=== PATIENT | female | born 1985 | race Caucasian/White ===

== ENCOUNTER → 2020-10-02 | Outpatient (REF) | payer MEDICARE | LOC: M LAB REF 19:14 | PROVIDERS: ATTEND Physician Assistant | DX: D22.5 Melanocytic nevi of trunk (principal) | CPT/HCPCS: 11102; 88305; G0463 ==

== ENCOUNTER 2023-06-13 13:52 | Observation (INO) | payer MEDICARE ==
[~2023-06-13] VITALS: Ht 167.6 cm; Wt 93.6 kg
[2023-06-13 15:30] VITALS: BP 128/91; TEMP 97.9; O2SAT 99
[2023-06-13] MEDS ORDERED: ONDANSETRON 4MG 2ML VIAL IV PRN (17:00)
[2023-06-13] MEDS ORDERED: LISI10TA22 PO (17:12)
[2023-06-13] MEDS ORDERED: PANT20TA51 PO (17:12)
[2023-06-13] MEDS ORDERED: ATOR1TAB21 PO (17:12)
[2023-06-13] MEDS ORDERED: QUET100T2 PO (17:12)
[2023-06-13] MEDS ORDERED: LEVO100T5 PO (17:12)
[2023-06-13] MEDS ORDERED: MULTTAB86 PO (17:12)
[2023-06-13] MEDS ORDERED: LAMI1TAB7 PO (17:12)
[2023-06-13] MEDS ORDERED: [UNRECOGNIZED DRUG - CODE] PO (17:12)
[2023-06-13] MEDS ORDERED: HOME MED LIST COMPLETE! XX SCH (17:15)
[2023-06-13] MEDS: LR 1,000 ML IV SCH (17:41)
[2023-06-13] MEDS: PANTOPRAZOLE 40MG VIAL IV SCH (17:41)
[2023-06-13] MEDS: PERCOCET 5MG/325MG TAB PO PRN (17:42)
[2023-06-13] MEDS: DOCUSATE SODIUM 100MG CAPSULE PO SCH (19:44)
[2023-06-13 21:00] VITALS: BP 122/63
[2023-06-13] MEDS: lamoTRIgine 100MG TAB PO SCH (21:00)
[2023-06-13] MEDS: QUEtiapine FUMARATE 100 MG TAB PO SCH (21:00)
[2023-06-13] MEDS: ATORVASTATIN 20 MG TAB PO SCH (21:00)
[2023-06-13 22:00] VITALS: BP 122/63; TEMP 97.6; O2SAT 98
[2023-06-14] VITALS (9 sets, daily range): BP systolic 122–143; BP diastolic 64–86; TEMP 97.7–98.5; O2SAT 96–98
[2023-06-14] MEDS: LEVOTHYROXINE 100MCG TABLET (0.1MG) PO SCH (05:17)
[2023-06-14] MEDS ORDERED: fentaNYL 100 MCG/2 ML INJECTION As Ordered ONE (07:55)
[2023-06-14] MEDS ORDERED: MIDAZOLAM INJ 2MG/2ML VIAL As Ordered ONE (07:55)
[2023-06-14] MEDS ORDERED: ROCURONIUM BROMIDE 50MG/5ML VIAL As Ordered ONE (07:56)
[2023-06-14] MEDS ORDERED: GLYCOPYRROLATE INJ 0.2 MG/ML 2 ML VIAL As Ordered ONE (07:56)
[2023-06-14] MEDS ORDERED: propofoL 200 MG/20 ML VIAL As Ordered ONE (07:56)
[2023-06-14] MEDS ORDERED: LIDOCAINE 2% 100MG/5ML SDV (FOR ANES.) As Ordered ONE (07:56)
[2023-06-14] MEDS ORDERED: KETOROLAC 60MG 2ML VIAL As Ordered ONE (07:57)
[2023-06-14] MEDS ORDERED: ONDANSETRON 4MG 2ML VIAL As Ordered ONE (07:57)
[2023-06-14] MEDS ORDERED: ONDANSETRON 4MG 2ML VIAL IV PRN (09:00)
[2023-06-14] MEDS ORDERED: fentaNYL 100 MCG/2 ML INJECTION IV PRN (09:00)
[2023-06-14] MEDS ORDERED: MEPERIDINE 25 MG/ML 1ML VIAL IV PRN (09:00)
[2023-06-14] MEDS ORDERED: ACETAMINOPHEN 1000MG 100ML IV BAG As Ordered ONE (09:20)
[2023-06-14] MEDS ORDERED: METOCLOPRAMIDE INJ 10MG/2ML VIAL As Ordered ONE (09:22)
[2023-06-14] MEDS ORDERED: SUGAMMADEX SODIUM 500 MG/5 ML VIAL (BRIDION) As Ordered ONE (09:36)
[2023-06-14] MEDS: HYDROMORPHONE HCL 0.5 MG/ 0.5 ML SYRINGE IV PRN (10:01)
[2023-06-14] MEDS: oxyCODONE 5MG TAB PO PRN (10:04)
[2023-06-14] MEDS: KETOROLAC 30 MG/ML 1ML VIAL IV PRN (13:16)
[2023-06-14] MEDS ORDERED: OXYC1TAB23 PO (15:48)
[2023-06-14] MEDS ORDERED: IBUP-1022 PO (15:49)
[2023-06-15] MEDS ORDERED: ONDA4TAB6 (18:07)
[2023-06-15] MEDS ORDERED: VENL75TA2 (18:07)
[2023-06-15] MEDS ORDERED: SUMA50TA2 (18:07)
== END 2023-06-14 16:59 | disposition home or self-care (01) ==
LOC: M PED 15:45
PROVIDERS: ADMIT Specialist; ATTEND Specialist
DX: N80.9 Endometriosis, unspecified (principal); D25.9 Leiomyoma of uterus, unspecified; R10.2 Pelvic and perineal pain; Z88.0 Allergy status to penicillin; Z88.2 Allergy status to sulfonamides
CPT/HCPCS: 58662; 96374; 96375; 96376; C9113; G0378; J0131; J0665; J1100; J1170; J1885; J2250; J2405; J2765; J3010

== ENCOUNTER 2023-06-15 17:52 | Emergency (ER) | payer MEDICARE ==
[~2023-06-15] VITALS: Ht 167.6 cm; Wt 93.6 kg
[2023-06-15 17:52] VITALS: BP 137/81; TEMP 99.5; O2SAT 98
[~2023-06-15 17:52] MED LIST: ATOR1TAB21 PO; IBUP-1022 PO; LAMI1TAB7 PO; LEVO100T5 PO; LISI10TA22 PO; MULTTAB86 PO; OXYC1TAB23 PO; PANT20TA51 PO; QUET100T2 PO; [UNRECOGNIZED DRUG - CODE] PO
[2023-06-15] MEDS ORDERED: ONDA4TAB6 (18:07)
[2023-06-15] MEDS ORDERED: SUMA50TA2 (18:07)
[2023-06-15] MEDS ORDERED: VENL75TA2 (18:07)
== END 2023-06-15 21:48 | disposition left against medical advice (07) ==
LOC: M ED 17:52
DX: Z53.21 Procedure and treatment not carried out due to patient leaving prior to being seen by health care provider (principal)

== ENCOUNTER 2023-08-31 10:39 | Observation (INO) | payer MEDICARE, MEDICAID ==
[~2023-08-31] VITALS: Ht 167.6 cm; Wt 91.6 kg
[2023-08-31] MEDS: LR 1,000 ML IV SCH ×3 (06:45→20:54)
[~2023-08-31 10:39] MED LIST changes: +ONDA-282 PO; +PANT20TA6 PO; +SUMA50TA2 PO; +VENL75TA2 PO
[2023-08-31] MEDS ORDERED: LR 1,000 ML IV SCH (12:00)
[2023-08-31 14:00] LABS: HEMATOCRIT 38.2 % (36.0-47.0); HEMOGLOBIN 12.6 g/dl (12.0-15.5); MEAN CORPUSCULAR HEMOGLOBIN 30.6 pg (27.0-33.0); MEAN CORPUSCULAR VOLUME 92.7 fl (80.0-96.0); PLATELET COUNT, AUTOMATED 279 10^3/uL (150-450); RED BLOOD COUNT 4.12 10^6/uL (4.00-5.40)
[2023-08-31] MEDS ORDERED: LIDOCAINE 2% 100MG/5ML SDV (FOR ANES.) As Ordered ONE (14:25)
[2023-08-31] MEDS ORDERED: propofoL 200 MG/20 ML VIAL As Ordered ONE (14:25)
[2023-08-31] MEDS ORDERED: ROCURONIUM BROMIDE 50MG/5ML VIAL As Ordered ONE (14:25)
[2023-08-31] MEDS ORDERED: ONDANSETRON 4MG 2ML VIAL As Ordered ONE (14:25)
[2023-08-31] MEDS ORDERED: KETOROLAC 60MG 2ML VIAL As Ordered ONE (14:26)
[2023-08-31] MEDS ORDERED: MIDAZOLAM INJ 2MG/2ML VIAL As Ordered ONE (14:26)
[2023-08-31] MEDS ORDERED: fentaNYL 100 MCG/2 ML INJECTION As Ordered ONE (14:26)
[2023-08-31] MEDS ORDERED: SUGAMMADEX SODIUM 500 MG/5 ML VIAL (BRIDION) As Ordered ONE (14:26)
[2023-08-31] MEDS ORDERED: ACETAMINOPHEN 1000MG 100ML IV BAG As Ordered ONE (14:26)
[2023-08-31] MEDS: ceFAZolin SOD 2 GM in IV 1 EA IV ONE (16:11)
[2023-08-31] MEDS ORDERED: HYDROmorphone HCL 2MG/ML 1ML VIAL As Ordered ONE (17:18)
[2023-08-31] MEDS ORDERED: ONDANSETRON 4MG 2ML VIAL IV PRN (18:20)
[2023-08-31] MEDS ORDERED: oxyCODONE 5MG TAB PO PRN (18:20)
[2023-08-31] MEDS ORDERED: fentaNYL 100 MCG/2 ML INJECTION IV PRN (18:20)
[2023-08-31] MEDS ORDERED: HYDROMORPHONE HCL 0.5 MG/ 0.5 ML SYRINGE IV PRN (18:20)
[2023-08-31 19:45] VITALS: BP 124/87; TEMP 97; O2SAT 98
[2023-08-31 20:15] VITALS: BP 127/72; TEMP 97.3; O2SAT 97
[2023-08-31] MEDS: QUEtiapine FUMARATE 100 MG TAB PO SCH (20:54)
[2023-08-31] MEDS: lamoTRIgine 100MG TAB PO SCH (20:54)
[2023-08-31] MEDS: DOCUSATE SODIUM 100MG CAPSULE PO SCH (20:54)
[2023-08-31] MEDS: KETOROLAC 30 MG/ML 1ML VIAL IV PRN (21:14)
[2023-08-31 21:45] VITALS: BP 121/71; TEMP 97.8; O2SAT 96
[2023-08-31] MEDS: ONDANSETRON 4MG 2ML VIAL IV PRN (22:15)
[2023-08-31 22:45] VITALS: BP 119/74; TEMP 97.1; O2SAT 99
[2023-08-31] MEDS: oxyCODONE 5MG TAB PO PRN (23:59)
[2023-09-01] MEDS: LEVOTHYROXINE 100MCG TABLET (0.1MG) PO SCH (05:46)
[2023-09-01 06:00] VITALS: BP 122/72; TEMP 97.7; O2SAT 18
[2023-09-01 10:00] VITALS: BP 106/62; TEMP 98.7; O2SAT 98
[2023-09-01 14:20] VITALS: BP 138/65; TEMP 97.7; O2SAT 98
[2023-09-01] MEDS ORDERED: COLA100C5 PO (14:41)
[2023-09-01 18:00] VITALS: BP 121/69; TEMP 97.3; O2SAT 100
[2023-09-01 22:00] VITALS: BP 124/74; TEMP 98.5; O2SAT 99
[2023-09-02 06:00] VITALS: BP 137/75; TEMP 98; O2SAT 98
== END 2023-09-02 09:25 | disposition home or self-care (01) ==
LOC: M SDC 10:39 → M OBS 10:40 → INTOOBSV 09-02 08:58 → OBSVTOIN 09-02 08:58
PROVIDERS: ADMIT Specialist; ATTEND Specialist
DX: D25.9 Leiomyoma of uterus, unspecified (principal); N80.9 Endometriosis, unspecified; R10.2 Pelvic and perineal pain; N99.71 Accidental puncture and laceration of a genitourinary system organ or structure during a genitourinary system procedure; I10 Essential (primary) hypertension; E03.9 Hypothyroidism, unspecified; J45.909 Unspecified asthma, uncomplicated; Z88.0 Allergy status to penicillin; Z88.2 Allergy status to sulfonamides; E78.5 Hyperlipidemia, unspecified; F41.9 Anxiety disorder, unspecified; F32.A Depression, unspecified; G43.909 Migraine, unspecified, not intractable, without status migrainosus; Z79.899 Other long term (current) drug therapy
CPT/HCPCS: 36415; 58571; 81025; 85027; 86850; 86900; 86901; 88307; 96361; 96374; 96375; G0378; J0131; J0665; J0690; J1100; J1170; J1885; J2250; J2405; J3010; S2900

== ENCOUNTER → 2024-04-04 | Outpatient (CLI) | payer MEDICARE, MEDICAID ==
[~2024-04-04] MED LIST changes: +COLA100C5 PO
== END ==
LOC: M PLALAB 16:15
PROVIDERS: ATTEND Specialist
DX: Z80.3 Family history of malignant neoplasm of breast (principal)